=== PATIENT | female | born 2000 | race Caucasian/White ===

== ENCOUNTER 2021-07-12 11:11 | Emergency (ER) | payer OTHER ==
[2021-07-12 12:21] LABS: BASOPHIL 0 % (0-2); EOSINOPHIL 0 % (0-5); HGB 14.5 g/dl (12.5-16.0); LYMPHOCYTE 24.2 % (15-48); MCH 29.9 pg (25.0-31.0); MCV 90.7 fL (78.0-100.0); MONOCYTE 8.7 % (0-12); MPV 10.2 fL (6.0-9.5); NEUTROPHIL 66.9 % (41-80); NRBC 0; PLT 206 K/uL (150-400); RBC 4.85 M/uL (4.20-5.40); WBC 6.3 K/uL (4.0-10.5)
[2021-07-12 12:22] LABS: BILIRUBIN NEGATIVE (NEGATIVE); BLOOD NEGATIVE Ery/uL (NEGATIVE); CLARITY CLEAR (CLEAR); COLOR YELLOW (YELLOW); GLUCOSE (U) NORMAL (NORMAL); LEUKOCYTES NEGATIVE Leu/uL (NEGATIVE); NITRITE NEGATIVE (NEGATIVE); PROTEIN 1+ mg/dL (NEGATIVE); UROBILINOGEN 0.2 mg/dL (0.2-1.0)
[2021-07-12 12:25] LABS: AMPHETAMINES NEGATIVE (NEGATIVE); BARBITURATES NEGATIVE (NEGATIVE); ECSTASY (MDMA) NEGATIVE (NEGATIVE); MARIJUANA (THC) NEGATIVE (NEGATIVE); METHADONE NEGATIVE (NEGATIVE); OPIATES NEGATIVE (NEGATIVE); OXYCODONE NEGATIVE (NEGATIVE)
[2021-07-12 12:32] LABS: BACTERIA TRACE; SQUAMOUS EPITHELIAL CELLS RARE; URINARY RBC RARE; URINARY WBC RARE
[2021-07-12 12:46] LABS: ALBUMIN 3.9 g/dL (3.4-5.0); BILIRUBIN - TOTAL 0.7 mg/dL (0.2-1.0); BUN/CREAT RATIO (CALC) 13.6 RATIO; CREATININE 0.88 mg/dL (0.51-0.95); GLOBULIN (CALCULATION) 4.2 g/dL; TOTAL PROTEIN 8.1 g/dL (6.4-8.2)
[2021-07-12] MEDS ORDERED: BACLOFEN 10MG T10 MG PO (14:44)
== END 2021-07-12 15:22 | disposition home or self-care (01) ==
LOC: FER 11:11
PROVIDERS: Internal Medicine
DX: R55 Syncope and collapse (principal); G43.909 Migraine, unspecified, not intractable, without status migrainosus; Z88.5 Allergy status to narcotic agent
CPT/HCPCS: 36415; 70450; 80053; 80305; 81001; 85025; 93005; J1885; J7030